=== PATIENT | male | born 1945 | race Asian ===

== ENCOUNTER → 2018-04-05 | Outpatient (CLI) | payer OTHER ==
[~2018-04-05] MED LIST: ABILIFY 5 MG TAB5 M1 PO; AMLODIPINE BESY10 MG PO; ASPIR 8181 MG PO; ATENOLOL 50MG T50 M1 PO; BISACODYL SUPP10 MG RECTAL; BISCOLAX10 MG RECTAL; COLACE100 MG PO; COZAAR 50 MG TA50 M2 PO; DEXTROSE 50%-W500 ML IV; ENEMEEZ283 MG/5 M RECTAL; FLOMAX0.4 MG PO; GLUCAGEN1 MG/1 ML SUBQ; LEVEMIR SUBQ; METFORMIN HCL500 MG PO; MILK OF MA2400 MG/10 PO; MIRALAX17 GM PO; NOVOLOG100 UNIT/1 SUBQ; PLAVIX 75 MG TA75 M1 PO; SENNA-DOCUSATE1 EAC1 PO; TYLENOL325 MG PO
[2018-04-05 11:35] VITALS: BP 131/82
[2018-04-05 13:35] VITALS: BP 124/78
== END ==
LOC: OPONC 09:09
DX: D75.1 Secondary polycythemia (principal)
CPT/HCPCS: 95100

== ENCOUNTER → 2018-04-09 | Outpatient (CLI) | payer OTHER ==
[2018-04-09 13:00] VITALS: BP 125/76
[2018-04-09 13:20] VITALS: BP 120/72
== END ==
LOC: OPONC 06:18
DX: D75.1 Secondary polycythemia (principal)
CPT/HCPCS: 95100